=== PATIENT | female | born 1960 | race Caucasian/White ===

== ENCOUNTER 2022-10-11 06:44 | Day surgery (SDC) | payer BC ==
[2022-10-11] MEDS ORDERED: Propofol 200 MG/20 ML SDV IV ONE (06:45)
[2022-10-11] MEDS ORDERED: Lidocaine 1% PF 2 ML SDV IV ONE (06:45)
[2022-10-11] MEDS ORDERED: Lactated Ringers 1,000 ML IV SCH (07:00)
[2022-10-11] MEDS ORDERED: Sodium Chloride 0.9% 10 ML Syringe FLUSH PRN (07:00)
[2022-10-11] MEDS ORDERED: Simethicone Drops 40 MG/0.6 ML 30 ML Bottle ONE (08:04)
[2022-10-11 10:34] VITALS: BP 151/92; PULSE 100
== END 2022-10-11 09:40 | disposition home or self-care (01) ==
LOC: FB.SDS 06:44
PROVIDERS: ATTEND Surgery
DX: R19.5 Other fecal abnormalities (principal); J45.909 Unspecified asthma, uncomplicated; Z79.899 Other long term (current) drug therapy; Z90.710 Acquired absence of both cervix and uterus
CPT/HCPCS: 00811; A9270-GY; J2704; J7120

== ENCOUNTER 2022-10-12 06:17 | Day surgery (SDC) | payer BC ==
[~2022-10-12 06:17] MED LIST: Lactated Ringers 1,000 ML IV SCH; Sodium Chloride 0.9% 10 ML Syringe FLUSH PRN
[2022-10-12] MEDS ORDERED: Citric Acid/Sodium Citrate Solution 30 ML Cup PO ONE (06:18)
[2022-10-12] MEDS ORDERED: Lidocaine 2% 5 ML SDV IV ONE (06:18)
[2022-10-12] MEDS ORDERED: Propofol 200 MG/20 ML SDV IV ONE (06:18)
[2022-10-12] MEDS ORDERED: Simethicone Drops 40 MG/0.6 ML 30 ML Bottle ONE (07:22)
[2022-10-12 07:45] VITALS: BP 145/80; PULSE 113
== END 2022-10-12 09:45 | disposition home or self-care (01) ==
LOC: FB.SDS 06:17
PROVIDERS: ATTEND Surgery
DX: R19.5 Other fecal abnormalities (principal); J45.909 Unspecified asthma, uncomplicated; Z79.899 Other long term (current) drug therapy; Z80.0 Family history of malignant neoplasm of digestive organs; Z77.22 Contact with and (suspected) exposure to environmental tobacco smoke (acute) (chronic)
CPT/HCPCS: 00811; A9270-GY; J2704; J7120

== ENCOUNTER 2024-07-11 11:59 | Emergency (ER) | payer MEDICARE ==
[2024-07-11 12:11] VITALS: BP 148/88
[2024-07-11 13:28] VITALS: PULSE 89
== END 2024-07-11 12:40 | disposition home or self-care (01) ==
LOC: FB.ED 11:59
DX: M62.838 Other muscle spasm (principal); J45.909 Unspecified asthma, uncomplicated; Z79.899 Other long term (current) drug therapy
CPT/HCPCS: 99283

== ENCOUNTER 2024-07-15 09:58 | Emergency (ER) | payer MEDICARE ==
[2024-07-15] MEDS: Sodium Chloride 0.9% 10 ML Syringe FLUSH PRN (10:14)
[2024-07-15] MEDS: LORazepam 2 MG/ML SDV IVPUSH PRN (10:14)
[2024-07-15] MEDS: Albuterol/Ipratropium 3.0-0.5 MG/3 ML Neb Soln NEB ONE (10:22)
[2024-07-15 10:27] LABS: HEMATOCRIT 40.8 % (34.2-48.2); HEMOGLOBIN 13.8 g/dL (11.4-15.5); MEAN CORPUSCULAR HEMOGLOBIN 30.2 pg (23.9-33.9); MEAN CORPUSCULAR HGB CONC 33.7 g/dL (31.9-34.8); MEAN CORPUSCULAR VOLUME 89.5 fL (76.7-100.5); MEAN PLATELET VOLUME 8.9 fL (7.1-12.4); PLATELET COUNT,PLT 336 x10(3)uL (151-488); RED BLOOD CELL COUNT 4.56 x10(6)uL (3.60-5.20); RED CELL DISTRIBUTION WIDTH 13.6 % (12.3-16.5); WHITE BLOOD CELL COUNT,WBC 22.8 x10-3/uL (3.0-10.3)
[2024-07-15 10:36] LABS: BLOOD UREA NITROGEN,BUN 7 mg/dL (7-18); BUN/CREATININE RATIO 5.8 (9-20); CALCIUM 9.2 mg/dL (8.6-10.2); CARBON DIOXIDE,CO2 19 mmol/L (21-32); CHLORIDE,CL 102 mmol/L (100-110); CREATININE 1.2 mg/dL (0.55-1.02); EST CRCL DRUG DOSING (CG) 40.36 mL/min; ESTIMATED GFR 50 mL/min (>60); GLUCOSE RANDOM 140 mg/dL (80-116); POTASSIUM,K 4.1 mmol/L (3.5-5.3); SODIUM,NA 138 mmol/L (135-145)
[2024-07-15 10:42] LABS: A/G RATIO 1.1; ALANINE AMINOTRANSFERASE,ALT 31 U/L (12-36); ALBUMIN 3.8 g/dL (3.2-4.6); ALKALINE PHOSPHATASE 86 IU/L (56-112); ASPARTATE AMNIOTRANSFERASE,AST 18 IU/L (5-25); BILIRUBIN TOTAL 0.9 mg/dL (0.1-1.3); CREATINE KINASE,CK 112 IU/L (60-160); PROTEIN TOTAL,TP 7.4 g/dL (6.0-8.0)
[2024-07-15 10:49] LABS: TSH ULTRASENSITIVE 1.53 IU/mL (0.36-3.74)
[2024-07-15 11:01] LABS: C-REACTIVE PROTEIN 6.09 mg/dL (<0.50)
[2024-07-15 11:18] LABS: LYMPHOCYTES PERCENT MAN 10 % (13-37); MONOCYTES PERCENT MAN 8 % (4-12); SEG NEUTROPHILS PERCENT MAN 82 % (46-82)
[2024-07-15 11:19] LABS: TOXIC GRANULATION MODERATE (NOT SEEN)
[2024-07-15 11:21] LABS: LACTIC ACID 8.2 mmol/L (0.4-2.0)
[2024-07-15 11:26] LABS: BASE EXCESS VENOUS,POC -1 mmol/L (-2 - 3+); PCO2 VENOUS,POC 35 mmHg (41-51); PH VENOUS,POC 7.42 pH Units (7.32-7.43)
[2024-07-15] MEDS: Sodium Chloride 0.9% 1,000 ML IV SCH (12:00)
[2024-07-15] MEDS: levETIRAcetam in NaCl (iso-os) 1,000 MG in Premix Bag 1 BAG IV ONE (12:20)
[2024-07-15] MEDS: Dexamethasone 4 MG/ML SDV IVPUSH ONE (12:30)
[2024-07-15 17:49] VITALS: BP 139/74; PULSE 105
== END 2024-07-15 12:50 | disposition other institution (70) ==
LOC: FB.ED 09:58
DX: R56.9 Unspecified convulsions (principal); J45.909 Unspecified asthma, uncomplicated; Z79.899 Other long term (current) drug therapy; Z90.710 Acquired absence of both cervix and uterus
CPT/HCPCS: 36415; 70450; 80053; 82550; 83605; 84443; 85025; 86140; 87040; 94640; 96374; 96375; 99285; A9270; J1100; J1953; J2060; J7030

== ENCOUNTER 2024-08-20 15:37 | Observation (INO) | payer MEDICARE ==
[2024-08-20 16:07] LABS: HEMOGLOBIN 13.4 g/dL (11.4-15.5); MEAN CORPUSCULAR HEMOGLOBIN 29.7 pg (23.9-33.9); MEAN CORPUSCULAR HGB CONC 34.3 g/dL (31.9-34.8); MEAN CORPUSCULAR VOLUME 86.8 fL (76.7-100.5); RED BLOOD CELL COUNT 4.5 x10(6)uL (3.60-5.20); RED CELL DISTRIBUTION WIDTH 13.9 % (12.3-16.5); WHITE BLOOD CELL COUNT,WBC 4.9 x10-3/uL (3.0-10.3)
[2024-08-20 16:11] LABS: BLOOD UREA NITROGEN,BUN 6 mg/dL (7-18); BUN/CREATININE RATIO 7.5 (9-20); CALCIUM 9.1 mg/dL (8.6-10.2); CARBON DIOXIDE,CO2 26 mmol/L (21-32); CHLORIDE,CL 100 mmol/L (100-110); CREATININE 0.8 mg/dL (0.55-1.02); EST CRCL DRUG DOSING (CG) 62.24 mL/min; ESTIMATED GFR 81 mL/min (>60); GLUCOSE RANDOM 119 mg/dL (80-116); POTASSIUM,K 3.6 mmol/L (3.5-5.3); SODIUM,NA 133 mmol/L (135-145)
[2024-08-20 16:19] LABS: TROPONIN I 45.7 pg/mL (4.0-60.3)
[2024-08-20 16:22] LABS: C-REACTIVE PROTEIN 3.66 mg/dL (<0.50)
[2024-08-20 16:26] LABS: ALANINE AMINOTRANSFERASE,ALT 58 U/L (12-36); ALBUMIN 3.3 g/dL (3.2-4.6); ALKALINE PHOSPHATASE 71 IU/L (56-112); ASPARTATE AMNIOTRANSFERASE,AST 47 IU/L (5-25); BILIRUBIN TOTAL 0.4 mg/dL (0.1-1.3); MAGNESIUM 1.6 mg/dL (1.8-2.5); PROTEIN TOTAL,TP 6.6 g/dL (6.0-8.0)
[2024-08-20] MEDS: Sodium Chloride 0.9% 1,000 ML IV ONE (16:45)
[2024-08-20] MEDS: Iopamidol 755 Mg/ML 100 ML Bottle IV SCH (17:25)
[2024-08-20 17:57] LABS: BILIRUBIN,URINE NEGATIVE (NEGATIVE); GLUCOSE,URINE NORMAL (NORMAL); KETONES,URINE NEGATIVE (NEGATIVE); LEUKOCYTE ESTERASE,URINE NEGATIVE (NEGATIVE); NITRITE,URINE NEGATIVE (NEGATIVE); OCCULT BLOOD,URINE MODERATE (NEGATIVE); PH,URINE 6.5 (5.0-6.5); PROTEIN,URINE NEGATIVE (NEGATIVE); UROBILINOGEN,URINE NORMAL (NEGATIVE)
[2024-08-20 18:04] LABS: APPEARANCE,URINE CLEAR (CLEAR); BACTERIA,URINE FEW (NS); COLOR,URINE YELLOW (YELLOW); SQUAMOUS EPITHELIAL CELLS,UR FEW (NS,R,O); WBC,URINE 0-5 (0-5)
[2024-08-20] MEDS: Acetaminophen 500 MG Tab PO ONE (20:31)
[2024-08-20 20:38] LABS: INR 1.13 (1.00-1.24); PROTHROMBIN TIME 11.6 sec (9.0-11.1)
[2024-08-20] MEDS ORDERED: Acetaminophen 325 MG Tab PO PRN (20:39)
[2024-08-20] MEDS ORDERED: Ondansetron 4 MG/2 ML SDV IV PRN (20:39)
[2024-08-20] MEDS ORDERED: Albuterol 6.7 GM Inhaler INH PRN (20:54)
[2024-08-20] MEDS ORDERED: Non-Formulary Medication 1 Each (Cetirizine [Zyrtec] 10 MG Tablet) PO PRN (20:54)
[2024-08-20] MEDS ORDERED: LEVETIRACETAM 750 MG PO SCH (21:00)
[2024-08-20] MEDS: Heparin Sodium 5,000 Units/ML Vial IVPUSH ONE (21:04)
[2024-08-20] MEDS: Ondansetron 4 MG/2 ML SDV IVPUSH ONE (21:04)
[2024-08-20] MEDS: metroNIDAZOLE 500 MG Tab PO SCH (22:18)
[2024-08-20] MEDS: Loratadine 10 MG Tab PO PRN (22:18)
[2024-08-20] MEDS: Formoterol/Mometasone 200-5 MCG 8.8 GM Inhaler IH SCH (22:19)
[2024-08-20] MEDS: Pantoprazole 40 MG Vial IVPUSH SCH (22:21)
[2024-08-20] MEDS: Sodium Chloride 0.9% 10 ML Syringe FLUSH PRN (22:21)
[2024-08-20] MEDS: cefTRIAXone 2 GM Vial IVPUSH SCH (22:25)
[2024-08-20] MEDS: Heparin Sodium/0.45% NaCl 25,000 UNITS/500 ML BAG IV SCH (22:34)
[2024-08-20] MEDS: Sodium Chloride 0.9% 1,000 ML IV SCH (22:50)
[2024-08-21] MEDS: Heparin Sodium/0.45% NaCl 25,000 UNITS/500 ML BAG IV SCH (04:10)
[2024-08-21] MEDS ORDERED: Sodium Chloride 0.9% 1,000 ML IV SCH (05:00)
[2024-08-21] MEDS: Acetaminophen 500 MG Tab PO ONE (05:14)
[2024-08-21] MEDS ORDERED: Sodium Chloride 0.9% 1,000 ML IV ONE (05:19)
[2024-08-21] MEDS: Sodium Chloride 0.9% 1,000 ML IV ONE (05:31)
[2024-08-21 05:42] VITALS: BP 142/62; PULSE 125
[2024-08-21 05:54] LABS: HEMATOCRIT 33.3 % (34.2-48.2); HEMOGLOBIN 11.3 g/dL (11.4-15.5); MEAN CORPUSCULAR HEMOGLOBIN 29.3 pg (23.9-33.9); MEAN CORPUSCULAR HGB CONC 33.9 g/dL (31.9-34.8); MEAN CORPUSCULAR VOLUME 86.6 fL (76.7-100.5); MEAN PLATELET VOLUME 9.9 fL (7.1-12.4); PLATELET COUNT,PLT 123 x10(3)uL (151-488); RED BLOOD CELL COUNT 3.85 x10(6)uL (3.60-5.20); RED CELL DISTRIBUTION WIDTH 14.1 % (12.3-16.5); WHITE BLOOD CELL COUNT,WBC 3.8 x10-3/uL (3.0-10.3)
[2024-08-21 06:25] LABS: BAND PERCENT MAN 1 % (0-6); EOSINOPHILS PERCENT MAN 3 % (0-5); LYMPHOCYTES PERCENT MAN 15 % (13-37); MONOCYTES PERCENT MAN 7 % (4-12); SEG NEUTROPHILS PERCENT MAN 74 % (46-82)
[2024-08-21] MEDS: Magnesium Sulfate 2 GM/50 mL 2 GM in Premix Bag 1 BAG IV ONE (07:45)
[2024-08-21] MEDS: Meropenem 1 GM SDV IVPUSH SCH (07:45)
[2024-08-21] MEDS: VANCOmycin 750 MG in Sodium Chloride 0.9% 250 ML IV SCH (07:46)
[2024-08-21] MEDS ORDERED: Memantine 10 MG Tab PO SCH (09:00)
[2024-08-22 22:32] LABS: PROCALCITONIN 0.26 ng/mL (<=0.08)
== END 2024-08-21 07:10 ==
LOC: FB.ED 15:37 → FB.MS 20:17
PROVIDERS: ADMIT Emergency Medicine; ATTEND Internal Medicine
DX: I82.461 Acute embolism and thrombosis of right calf muscular vein (principal); I26.99 Other pulmonary embolism without acute cor pulmonale; R50.9 Fever, unspecified; L03.116 Cellulitis of left lower limb; E83.42 Hypomagnesemia; Z79.899 Other long term (current) drug therapy; Z20.822 Contact with and (suspected) exposure to COVID-19
CPT/HCPCS: 36415; 70450; 71045; 71275; 80053; 81001; 83605; 83735; 84145; 84484; 85025; 85027; 85379; 85610; 85730; 86140; 87040; 87426; 93005; 93010; 96361; 96365; 96366; 96375; 96376; 99223; 99238; 99285; A9270; G0378; J0696; J1644; J2405; J2470; J7030; Q9967; 96374

== ENCOUNTER 2024-09-02 07:34 | Inpatient (IN) | payer MEDICARE ==
[2024-09-02] MEDS ORDERED: Aluminum Hydroxide/Magnesium Hydroxide Susp 30 ML Cup PO PRN (13:30)
[2024-09-02] MEDS: Formoterol/Mometasone 100-5 MCG 8.8 GM Inhaler INH SCH (20:35)
[2024-09-03] MEDS: Multivitamins with Iron/Calcium/Folic Acid/Minerals Tab PO SCH (08:22)
[2024-09-05] MEDS: Nystatin Susp 100,000 Unit/ML 5 ML UD Cup PO SCH (16:12)
[2024-09-12 11:22] VITALS: BP 130/70; PULSE 73
== END 2024-09-12 10:05 | disposition home health service (06) | DRG 948 ==
LOC: FB.MS 12:22
PROVIDERS: ADMIT Internal Medicine; ATTEND Family Medicine
DX: R53.81 Other malaise (principal); I48.91 Unspecified atrial fibrillation; D72.12 Drug rash with eosinophilia and systemic symptoms syndrome; E78.5 Hyperlipidemia, unspecified; J45.40 Moderate persistent asthma, uncomplicated; F03.90 Unspecified dementia, unspecified severity, without behavioral disturbance, psychotic disturbance, mood disturbance, and anxiety; Z79.899 Other long term (current) drug therapy; Z79.01 Long term (current) use of anticoagulants; Z79.52 Long term (current) use of systemic steroids; Z98.890 Other specified postprocedural states; Z90.710 Acquired absence of both cervix and uterus
CPT/HCPCS: 97110-GO; 97110-GP; 97112-GP; 97116-GP; 97161-GP; 97165-GO; 97530-GP; 97535-GO; 99305; 99307; 99316; A9270-GY